=== PATIENT | female | born 2000 | race Caucasian/White ===

== ENCOUNTER 2020-01-12 00:15 | Emergency (ER) | payer SELFPAY ==
[~2020-01-12] VITALS: Ht 152.4 cm; Wt 95.4 kg
[2020-01-12 00:32] VITALS: Ht 152.4 cm; Wt 95.4 kg
[2020-01-12 02:42] VITALS: BP 125/77
== END 2020-01-12 02:42 | disposition home or self-care (01) ==
LOC: ED 00:15
DX: S06.0X9A Concussion with loss of consciousness of unspecified duration, initial encounter (principal); S00.83XA Contusion of other part of head, initial encounter; M25.561 Pain in right knee; R11.2 Nausea with vomiting, unspecified; M54.2 Cervicalgia; Y04.0XXA Assault by unarmed brawl or fight, initial encounter; Y93.89 Activity, other specified; Y92.89 Other specified places as the place of occurrence of the external cause; Y99.8 Other external cause status
CPT/HCPCS: Q0092; Q0162

== ENCOUNTER 2020-03-16 01:19 | Emergency (ER) | payer OTHER ==
[~2020-03-16] VITALS: Ht 152.4 cm; Wt 99.8 kg
[2020-03-16 01:25] VITALS: Ht 152.4 cm; Wt 99.8 kg
[2020-03-16 03:55] VITALS: BP 114/65
== END 2020-03-16 03:54 | disposition home or self-care (01) ==
LOC: ED 01:19
DX: R51 Headache (principal); M25.522 Pain in left elbow; M79.605 Pain in left leg; V49.49XA Driver injured in collision with other motor vehicles in traffic accident, initial encounter; Y93.I9 Activity, other involving external motion; Y92.89 Other specified places as the place of occurrence of the external cause; Y99.8 Other external cause status
CPT/HCPCS: Q0092

== ENCOUNTER 2020-08-12 21:12 | Emergency (ER) | payer MEDICAID ==
[~2020-08-12] VITALS: Ht 152.4 cm; Wt 104.3 kg
[2020-08-12 21:22] VITALS: Ht 152.4 cm; Wt 104.3 kg
[2020-08-12 21:52] VITALS: BP 141/92
== END 2020-08-12 21:52 | disposition home or self-care (01) ==
LOC: ED 21:12
DX: M25.562 Pain in left knee (principal)